=== PATIENT | male | born 1950 | race Caucasian/White ===

== ENCOUNTER → 2016-07-30 | Outpatient (CLI) | payer MEDICARE | END | disposition home or self-care (01) | LOC: MW.CHUR 10:23 | PROVIDERS: ATTEND Urology | DX: C61 Malignant neoplasm of prostate (principal); Z85.46 Personal history of malignant neoplasm of prostate | CPT/HCPCS: 36415; 84153; G0463 ==

== ENCOUNTER 2017-05-06 12:54 | Observation (INO) | payer MEDICARE ==
[2017-05-06] MEDS ORDERED: methylPREDNISolone Sodium Succinate 125 MG/2 ML SDV IVPUSH ONE (12:58)
[2017-05-06] MEDS ORDERED: Albuterol/Ipratropium 3.0-0.5 MG/3 ML Neb Soln NEB ONE (12:58)
[2017-05-06] MEDS ORDERED: Sodium Chloride 0.9% 10 ML Syringe FLUSH PRN (12:58)
[2017-05-06] MEDS ORDERED: Sodium Chloride 0.9% 2.5 ML Syringe FLUSH PRN (12:58)
--- NOTE | 2017-05-06 14:15 | EDM.PDOC ---
ED HPI GENERAL MEDICAL PROBLEM - General Chief Complaint: Respiratory Problem Stated Complaint: SOB Time Seen by Provider: 05/06/17 12:55 Source of Information: Reports: Patient History Limitations: Reports: No Limitations - History of Present Illness INITIAL COMMENTS - FREE TEXT/NARRATIVE: History of present illness: []Patient has been ill for 2 days with shortness of breath, nausea, vomiting and diarrhea. Severe weakness and history of prostate cancer. He is scheduled to see his oncologist today and went in for a blood draw now he was at the lab he was short of breath and was transferred to the ER for evaluation. Patient does have a history of COPD and uses oxygen at home. Review of systems: As per history of present illness and below otherwise all systems reviewed and negative. Past medical history: As per history of present illness and as reviewed below otherwise noncontributory. Surgical history: As per history of present illness and as reviewed below otherwise noncontributory. Social history: No reported history of drug or alcohol abuse. Family history: As per history of present illness and as reviewed below otherwise noncontributory. Physical exam: General: Well developed, well nourished in NAD HEENT: Atraumatic, normocephalic, pupils reactive, negative for conjunctival pallor or scleral icterus, mucous membranes moist, throat clear, neck supple, nontender, trachea midline. Lungs: Clear to auscultation, breath sounds equal bilaterally, chest nontender. Heart: S1S2, regular, negative for clicks, rubs, or JVD. Abdomen: Soft, nondistended, nontender. Negative for masses or hepatosplenomegaly. Negative for costovertebral tenderness. Pelvis: Stable nontender. Genitourinary: Deferred. Rectal: Deferred. Extremities: Atraumatic, negative for cords or calf pain. Neurovascular unremarkable. Neuro: Awake, alert, oriented. Cranial nerves II through XII unremarkable. Cerebellum unremarkable. Motor and sensory unremarkable throughout. Exam nonfocal. Diagnostics: []Influenza positive S x-ray negative for obvious pneumonia Therapeutics: []DuoNeb and steroids begun Impression: []COPD exacerbation, positive influenza A Plan: []Admit for labs, IV hydration and oxygen supplementation. Definitive disposition and diagnosis as appropriate pending reevaluation and review of above. - Related Data Allergies Allergy/AdvReac Type Severity Reaction Status Date / Time No Known Allergies Allergy Verified 05/06/17 13:02 Home Meds: Home Meds Leuprolide Acetate [Lupron Depot] 1 injection ASDIRECTED 06/12/15 [History] Acetaminophen/oxyCODONE [Percocet 325-5 MG] 1 - 2 tab PO Q6H PRN #30 tablet [Rx] Docusate Sodium [Colace] 100 mg PO BID #60 cap 06/14/15 [Rx] Albuterol [Ventolin HFA] 1 puff PO DAILY 05/06/17 [History] Budesonide/Formoterol Fumarate [Symbicort 160-4.5 Mcg Inhaler] 1 puff IH DAILY 05/06/17 [History] Past Medical History Cardiovascular History: Reports: Other (See Below) Other Cardiovascular History: said he was has history of blood pressure for the past months Respiratory History: Reports: COPD Gastrointestinal History: Reports: Diverticulosis Genitourinary History: Reports: Prostate Disorder, Other (See Below) Other Genitourinary History: prostates CA in October 2013 taking lupron every 4 months Oncologic (Cancer) History: Reports: Prostate - Infectious Disease History Infectious Disease History: Reports: Chicken Pox - Past Surgical History GI Surgical History: Reports: Colon, Small Bowel Dermatological Surgical History: Reports: None Social & Family History - Family History Family Medical History: Noncontributory Cardiac: Reports: Other (See Below) Other Cardiac Family History: heart attack Endocrine/Metabolic: Reports: Diabetes, type II - Tobacco Use Smoking Status *Q: Current Every Day Smoker Years of Tobacco use: 30 Packs/Tins Daily: 0.5 Used Tobacco, but Quit: Yes Month Tobacco Last Used: may Second Hand Smoke Exposure: No - Caffeine Use Caffeine Use: Reports: Other - Alcohol Use Days Per Week of Alcohol Use: 2 Number of Drinks Per Day: 6 Total Drinks Per Week: 12 - Recreational Drug Use Recreational Drug Use: No Drug Use in Last 12 Months: No Recreational Drug Type: Reports: Marijuana/Hashish Recreational Drug Use Frequency: Monthly ED ROS GENERAL - Review of Systems Review Of Systems: See Below (See history of present illness) ED EXAM, GENERAL - Physical Exam Exam: See Below (See history of present illness) Course - Vital Signs Last Recorded V/S: Last Vital Signs Temp 97.9 F 05/06/17 17:01 Pulse 90 01/10/18 17:01 Resp 18 05/06/17 17:01 BP 117/65 05/06/17 17:01 Pulse Ox 94 L 05/06/17 17:01 - Orders/Labs/Meds Orders: Active Orders 24 hr Category Date Time Status Patient Status [ADT] Stat ADT 05/06/17 14:39 Active Antiembolic Devices [RC] PER UNIT ROUTINE Care 05/06/17 14:51 Active RT Aerosol Therapy [RC] ASDIRECTED Care 05/06/17 12:58 Active Up ad Charito [RC] ASDIRECTED Care 05/06/17 14:50 Active VTE/DVT Education [RC] PER UNIT ROUTINE Care 05/06/17 14:50 Active Vital Signs [RC] Q4H Care 05/06/17 14:50 Active Regular Diet [DIET] Diet 05/06/17 Breakfast Active BASIC METABOLIC PANEL,BMP [CHEM] AM Lab 05/07/17 05:11 Ordered CBC WITH AUTO DIFF [HEME] AM Lab 05/07/17 05:11 Ordered CULTURE BLOOD [BC] Stat Lab 05/06/17 15:02 Received CULTURE BLOOD [BC] Stat Lab 05/06/17 15:19 Received CULTURE SPUTUM + SMEAR [RM] Stat Lab 05/06/17 14:55 Uncollected Acetaminophen [Tylenol] Med 05/06/17 14:50 Active 650 mg PO Q4H PRN Albuterol/Ipratropium [DuoNeb 3.0-0.5 MG/3 ML] Med 05/06/17 14:50 Active 3 ml NEB Q4HRRT PRN Enoxaparin [Lovenox] Med 05/07/17 09:00 Active 40 mg SUBCUT DAILY Levofloxacin/Dextrose 5%-Water [Levaquin in D5W 750 MG/ Med 05/06/17 15:00 Active 150 ML] 750 mg Premix Bag 1 bag IV Q24H Ondansetron [Zofran] Med 05/06/17 14:50 Active 4 mg IVPUSH Q4H PRN Oseltamivir [Tamiflu] Med 05/06/17 15:00 Active 75 mg PO BID Sodium Chloride 0.9% [Normal Saline] 1,000 ml Med 05/06/17 15:00 Active IV ASDIRECTED Sodium Chloride 0.9% [Saline Flush] Med 05/06/17 12:58 Active 10 ml FLUSH ASDIRECTED PRN Sodium Chloride 0.9% [Saline Flush] Med 05/06/17 12:58 Active 2.5 ml FLUSH ASDIRECTED PRN Blood Culture x2 Reflex Set [OM.PC] Stat Oth 05/06/17 14:55 Ordered Saline Lock Insert [OM.PC] Stat Oth 05/06/17 12:57 Ordered Sequential Compression Device [OM.PC] Per Unit Routine Oth 05/06/17 14:50 Ordered Resuscitation Status Routine Resus Stat 05/06/17 14:50 Ordered Medication Orders Acetaminophen (Tylenol) 650 mg PO Q4H PRN PRN Reason: Pain (Mild 1-3)/fever Albuterol/Ipratropium (Duoneb 3.0-0.5 Mg/3 Ml) 3 ml NEB Q4HRRT PRN PRN Reason: Shortness Of Breath/wheezing Enoxaparin Sodium (Lovenox) 40 mg SUBCUT DAILY [facility] Levofloxacin/Dextrose 750 mg/ (Premix) 150 mls @ 100 mls/hr IV Q24H [facility] Last Admin: 05/06/17 15:37 Dose: 100 mls/hr Sodium Chloride (Normal Saline) 1,000 mls @ 125 mls/hr IV ASDIRECTED [facility] Last Admin: 05/06/17 15:37 Dose: 125 mls/hr Ondansetron HCl (Zofran) 4 mg IVPUSH Q4H PRN PRN Reason: Nausea Oseltamivir Phosphate (Tamiflu) 75 mg PO BID [facility] Last Admin: 05/06/17 15:38 Dose: 75 mg Sodium Chloride (Saline Flush) 10 ml FLUSH ASDIRECTED PRN PRN Reason: Keep Vein Open Last Admin: 05/06/17 13:56 Dose: 10 ml Sodium Chloride (Saline Flush) 2.5 ml FLUSH ASDIRECTED PRN PRN Reason: Keep Vein Open Last Admin: 05/06/17 13:55 Dose: 2.5 ml Labs: Laboratory Tests 05/06/17 Range/Units 12:36 Troponin I < 0.10 (0.0-0.29) NG/ML Meds: Medications Generic Name Dose Route Start Last Admin Trade Name Freq PRN Reason Stop Dose Admin Acetaminophen 650 mg 05/06/17 14:50 Tylenol PO Q4H PRN Pain (Mild 1-3)/fever Albuterol/Ipratropium 3 ml 05/06/17 14:50 Duoneb 3.0-0.5 Mg/3 Ml NEB Q4HRRT PRN Shortness Of Breath/wheezing Enoxaparin Sodium 40 mg 05/07/17 09:00 Lovenox SUBCUT DAILY [facility] Levofloxacin/Dextrose 750 mg/ 150 mls @ 100 mls/hr 05/06/17 15:00 05/06/17 15 :37 Premix IV 100 mls/hr Q24H [facility] Administration Sodium Chloride 1,000 mls @ 125 mls/hr 05/06/17 15:00 05/06/17 15:37 Normal Saline IV 125 mls/hr ASDIRECTED [facility] Administration Ondansetron HCl 4 mg 05/06/17 14:50 Zofran IVPUSH Q4H PRN Nausea Oseltamivir Phosphate 75 mg 05/06/17 15:00 05/06/17 15:38 Tamiflu PO 75 mg BID [facility] Administration Sodium Chloride 10 ml 05/06/17 12:58 05/06/17 13:56 Saline Flush FLUSH 10 ml ASDIRECTED PRN Administration Keep Vein Open Sodium Chloride 2.5 ml 05/06/17 12:58 05/06/17 13:55 Saline Flush FLUSH 2.5 ml ASDIRECTED PRN Administration Keep Vein Open Discontinued Medications Generic Name Dose Route Start Last Admin Trade Name Freq PRN Reason Stop Dose Admin Albuterol/Ipratropium 3 ml 05/06/17 12:58 05/06/17 13:34 Duoneb 3.0-0.5 Mg/3 Ml NEB 05/06/17 12:59 3 ml ONETIME ONE Administration Methylprednisolone Sodium Succinate 125 mg 05/06/17 12:58 05/06/17 13:55 Solu-Medrol IVPUSH 05/06/17 12:59 125 mg ONETIME ONE Administration Departure - Departure Time of Disposition: 15:45 Disposition: Admitted As Inpatient 67 Condition: Fair Clinical Impression: COPD exacerbation, Influenza A - Discharge Information - My Orders Last 24 Hours: My Active Orders 05/06/17 12:57 Saline Lock Insert [OM.PC] Stat 05/06/17 12:58 RT Aerosol Therapy [RC] ASDIRECTED Sodium Chloride 0.9% [Saline Flush] 10 ml FLUSH ASDIRECTED PRN Sodium Chloride 0.9% [Saline Flush] 2.5 ml FLUSH ASDIRECTED PRN 05/06/17 14:39 Patient Status [ADT] Stat - Assessment/Plan Last 24 Hours: My Active Orders 05/06/17 12:57 Saline Lock Insert [OM.PC] Stat 05/06/17 12:58 RT Aerosol Therapy [RC] ASDIRECTED Sodium Chloride 0.9% [Saline Flush] 10 ml FLUSH ASDIRECTED PRN Sodium Chloride 0.9% [Saline Flush] 2.5 ml FLUSH ASDIRECTED PRN 05/06/17 14:39 Patient Status [ADT] Stat
--- NOTE | 2017-05-06 14:16 | CR ---
EXAMINATION: Portable chest radiograph. HISTORY: Shortness of breath. FINDINGS: The trachea is midline. The cardiomediastinal silhouette is within normal limits. No pulmonary infilt rates, effusions or pneumothorax. Old bilateral rib fractures are noted. There is a calcified granuloma within the left lung base. IMPRESSION: No acute cardiopulmonary process.
[2017-05-06] MEDS ORDERED: Ondansetron 4 MG/2 ML SDV IVPUSH PRN (14:50)
[2017-05-06] MEDS ORDERED: Acetaminophen 325 MG Tab PO PRN (14:50)
[2017-05-06] MEDS ORDERED: Albuterol/Ipratropium 3.0-0.5 MG/3 ML Neb Soln NEB PRN (14:50)
--- NOTE | 2017-05-06 14:59 | PCM.HP ---
H&P History of Present Illness - General Admit Problem/Dx: Admission Diagnosis/Problem Admission Diagnosis/Problem Influenza due to influenza A subtype H1N1 virus - History of Present Illness Initial Comments - Free Text/Narative: 67 yo male with pmh of COPD and prostate cancer who presented for lab draw for oncology clinic and was then brought to the ED due to complaints of shortness of breath. Patient reports productive cough, shortness of breath, fevers, and myalgias for two days. He becomes short of breath by walking to the bathroom. He tested positive for influenza A. CXR reported no consolidation. He is satting 97% on RA - Related Data Allergies/Adverse Reactions: Allergies Allergy/AdvReac Type Severity Reaction Status Date / Time No Known Allergies Allergy Verified 05/06/17 13:02 Home Medications: Home Meds Leuprolide Acetate [Lupron Depot] 1 injection ASDIRECTED 06/12/15 [History] Acetaminophen/oxyCODONE [Percocet 325-5 MG] 1 - 2 tab PO Q6H PRN #30 tablet [Rx] Docusate Sodium [Colace] 100 mg PO BID #60 cap 06/14/15 [Rx] Albuterol [Ventolin HFA] 1 puff PO DAILY 05/06/17 [History] Budesonide/Formoterol Fumarate [Symbicort 160-4.5 Mcg Inhaler] 1 puff IH DAILY 05/06/17 [History] Levofloxacin [Levaquin] 750 mg PO DAILY #3 tablet 05/07/17 [Rx] Oseltamivir Phosphate [IJD: Tamiflu] 75 mg PO BID #9 capsule 05/07/17 [Rx] Past Medical History Cardiovascular History: Reports: Other (See Below) Other Cardiovascular History: said he was has history of blood pressure for the past months Respiratory History: Reports: COPD Gastrointestinal History: Reports: Diverticulosis Genitourinary History: Reports: Prostate Disorder, Other (See Below) Other Genitourinary History: prostates CA in October 2013 taking lupron every 4 months Oncologic (Cancer) History: Reports: Prostate - Infectious Disease History Infectious Disease History: Reports: Chicken Pox - Past Surgical History GI Surgical History: Reports: Colon, Small Bowel Dermatological Surgical History: Reports: None Social & Family History - Family History Family Medical History: Noncontributory Cardiac: Reports: Other (See Below) Other Cardiac Family History: heart attack Endocrine/Metabolic: Reports: Diabetes, type II - Tobacco Use Smoking Status *Q: Current Every Day Smoker Years of Tobacco use: 30 Packs/Tins Daily: 0.5 Used Tobacco, but Quit: Yes Month Tobacco Last Used: may Second Hand Smoke Exposure: No - Caffeine Use Caffeine Use: Reports: Other - Alcohol Use Days Per Week of Alcohol Use: 2 Number of Drinks Per Day: 6 Total Drinks Per Week: 12 - Recreational Drug Use Recreational Drug Use: No Drug Use in Last 12 Months: No Recreational Drug Type: Reports: Marijuana/Hashish Recreational Drug Use Frequency: Monthly H&P Review of Systems - Review of Systems: Review Of Systems: ROS reveals no pertinent complaints other than HPI. Exam - Exam Exam: See Below - Vital Signs Vital Signs: Last Vital Signs Temp 36.7 C 05/06/17 13:04 Pulse 97 05/06/17 13:04 Resp 18 05/06/17 13:04 BP 107/81 05/06/17 13:04 Pulse Ox 95 05/06/17 13:04 Weight: 90.718 kg - Exam General: Alert, Oriented HEENT: Mucosa Moist & [place] Neck: No: JVD Lungs: Normal Respiratory Effort, Decreased Breath Sounds Cardiovascular: Regular Rate, Regular Rhythm GI/Abdominal Exam: Soft, Non-Tender Extremities: Non-Tender, No Pedal Edema Skin: Warm, Dry, Intact - Patient Data Lab Results Last 24 hrs: Laboratory Results - last 24 hr 05/06/17 Range/Units 12:36 Troponin I < 0.10 (0.0-0.29) NG/ML Result Diagrams: 05/07/17 04:52 05/07/17 04:52 Emmanuel Results Last 24 hrs: Microbiology 05/06/17 13:24 Influenza Type A Antigen Screen - Final Nasopharyngeal Swab Positive Influenza A Ag Influenza Type B Antigen Screen - Final NEGATIVE INFLUENZA B VIRUS AG *Q Meaningful Use (ADM) - VTE *Q VTE Criteria *Q: - Stroke *Q Stroke Criteria *Q: - AMI *Q AMI Criteria *Q: Problem List Initiated/Reviewed/Updated: Yes Orders Last 24hrs: Active Orders 24 hr Category Date Time Status Patient Status [ADT] Stat ADT 05/06/17 14:39 Active Antiembolic Devices [RC] PER UNIT ROUTINE Care 05/06/17 14:51 Ordered EKG Documentation Completion [RC] STAT Care 05/06/17 12:57 Active Oxygen Therapy [RC] PRN Care 05/06/17 14:50 Ordered RT Aerosol Therapy [RC] ASDIRECTED Care 05/06/17 12:58 Active RT Aerosol Therapy [RC] ASDIRECTED Care 05/06/17 14:51 Ordered Up ad Charito [RC] ASDIRECTED Care 05/06/17 14:50 Ordered VTE/DVT Education [RC] PER UNIT ROUTINE Care 05/06/17 14:50 Ordered Vital Signs [RC] Q4H Care 05/06/17 14:50 Ordered Regular Diet [DIET] Diet 05/06/17 Breakfast Ordered CBC WITH AUTO DIFF [HEME] Routine Lab 05/06/17 14:50 Ordered COMPREHENSIVE METABOLIC PN,CMP [CHEM] Routine Lab 05/06/17 14:50 Ordered Acetaminophen [Tylenol] Med 05/06/17 14:50 Ordered 650 mg PO Q4H PRN Albuterol/Ipratropium [DuoNeb 3.0-0.5 MG/3 ML] Med 05/06/17 14:50 Ordered 3 ml NEB Q4HRRT PRN Enoxaparin [Lovenox] Med 05/07/17 09:00 Ordered 40 mg SUBCUT DAILY Levofloxacin/Dextrose 5%-Water [Levaquin in D5W 750 MG/ Med 05/06/17 15:00 Ordered 150 ML] 750 mg Premix Bag 1 bag IV Q24H Ondansetron [Zofran] Med 05/06/17 14:50 Ordered 4 mg IVPUSH Q4H PRN Oseltamivir [Tamiflu] Med 05/06/17 15:00 Ordered 75 mg PO BID Sodium Chloride 0.9% @ 125 MLS/HR (1000ml) Med 05/06/17 15:00 Ordered Sodium Chloride 0.9% [Normal Saline] 1,000 ml IV ASDIRECTED Sodium Chloride 0.9% [Saline Flush] Med 05/06/17 12:58 Active 10 ml FLUSH ASDIRECTED PRN Sodium Chloride 0.9% [Saline Flush] Med 05/06/17 12:58 Active 2.5 ml FLUSH ASDIRECTED PRN Saline Lock Insert [OM.PC] Stat Oth 05/06/17 12:57 Ordered Sequential Compression Device [OM.PC] Per Unit Routine Oth 05/06/17 14:50 Ordered Resuscitation Status Routine Resus Stat 05/06/17 14:50 Ordered Medication Orders Acetaminophen (Tylenol) 650 mg PO Q4H PRN PRN Reason: Pain (Mild 1-3)/fever Albuterol/Ipratropium (Duoneb 3.0-0.5 Mg/3 Ml) 3 ml NEB Q4HRRT PRN PRN Reason: Shortness Of Breath/wheezing Enoxaparin Sodium (Lovenox) 40 mg SUBCUT DAILY [facility] Levofloxacin/Dextrose 750 mg/ (Premix) 150 mls @ 100 mls/hr IV Q24H [facility] Sodium Chloride (Normal Saline) 1,000 mls @ 125 mls/hr IV ASDIRECTED [facility] Ondansetron HCl (Zofran) 4 mg IVPUSH Q4H PRN PRN Reason: Nausea Oseltamivir Phosphate (Tamiflu) 75 mg PO BID [facility] Sodium Chloride (Saline Flush) 10 ml FLUSH ASDIRECTED PRN PRN Reason: Keep Vein Open Last Admin: 05/06/17 13:56 Dose: 10 ml Sodium Chloride (Saline Flush) 2.5 ml FLUSH ASDIRECTED PRN PRN Reason: Keep Vein Open Last Admin: 05/06/17 13:55 Dose: 2.5 ml Assessment/Plan Comment:: 67 yo male admitted for influenza and possible bacterial pneumonia. Will treat with IV fluids, tamiflu, and Levaquin. Duonebs ordered due to history of COPD.
[2017-05-06] MEDS ORDERED: Levofloxacin/Dextrose 5%-Water 750 MG in Premix Bag 1 BAG IV SCH (15:00)
[2017-05-06] MEDS: Sodium Chloride 0.9% 1,000 ML IV SCH ×2 (15:37→23:48)
[2017-05-06] MEDS: Oseltamivir 75 MG Cap PO SCH ×2 (15:38→21:29)
[2017-05-06] MEDS: Nicotine 7 MG/24 Hr Patch TRDERM SCH (18:28)
[2017-05-06] MEDS ORDERED: Benzocaine/Cetylpyridinium/Menthol Lozenge MUCMEM PRN (23:22)
[2017-05-07 06:10] LABS: CHLORIDE,CL 108 mmol/L (98-110); SODIUM,NA 140 mmol/L (136-146)
[2017-05-07] MEDS: Oseltamivir 75 MG Cap PO SCH (08:14)
[2017-05-07] MEDS: Nicotine 7 MG/24 Hr Patch TRDERM SCH (08:14)
[2017-05-07] MEDS ORDERED: Enoxaparin 40 MG/0.4 ML Syringe SUBCUT SCH (09:00)
--- NOTE | 2017-05-07 10:41 | PCM.DCSUM1 ---
Discharge Summary - Hospital Course Brief History: 67 yo male with pmh of COPD and prostate cancer who presented for lab draw for oncology clinic and was then brought to the ED due to complaints of shortness of breath. Patient reports productive cough, shortness of breath, fevers, and myalgias for two days. He becomes short of breath by walking to the bathroom. He tested positive for influenza A. CXR reported no consolidation. He is satting 97% on RA - Discharge Data Discharge Date: 05/07/17 Discharge Disposition: Home, Self-Care 01 Condition: Good - Patient Instructions Diet: Usual Diet as Tolerated Activity: No Strenuous Activities, Rest and Relax Today Showering/Bathing: August Shower Notify Provider of: Fever, Increased Pain, Swelling and Redness, Drainage, Nausea and/or Vomiting - Discharge Plan Prescriptions/Med Rec: Levofloxacin [Levaquin] 750 mg PO DAILY #3 tablet Oseltamivir Phosphate [IJD: Tamiflu] 75 mg PO BID #9 capsule Home Medications: Home Meds Leuprolide Acetate [Lupron Depot] 1 injection ASDIRECTED 06/12/15 [History] Acetaminophen/oxyCODONE [Percocet 325-5 MG] 1 - 2 tab PO Q6H PRN #30 tablet [Rx] Docusate Sodium [Colace] 100 mg PO BID #60 cap 06/14/15 [Rx] Albuterol [Ventolin HFA] 1 puff PO DAILY 05/06/17 [History] Budesonide/Formoterol Fumarate [Symbicort 160-4.5 Mcg Inhaler] 1 puff IH DAILY 05/06/17 [History] Levofloxacin [Levaquin] 750 mg PO DAILY #3 tablet 05/07/17 [Rx] Oseltamivir Phosphate [IJD: Tamiflu] 75 mg PO BID #9 capsule 05/07/17 [Rx] Patient Handouts: Shortness of Breath, [id number], Influenza, Adult, Easy-to- Read Referrals: Durga Fox DO [Physician] - - Discharge Summary/Plan Comment DC Time >30 min.: No Discharge Summary/Plan Comment: Discharge Diagnoses; Influenza A positive Possible bacterial pneumonia COPD Prostate Cancer Dre was admitted and treated with IVFs, tamiflu and supportive care during his overnight stay. He was also treated with levaquin for possible bacterial pneumonia. Today he is feeling much better and is requesting discharge home. He is not requiring oxygen and has been afebrile. Toay Leukopenia noted, 2,000. He was encouraged to stay out of the public for the next few days and rest at home with lots of fluids and rest. He verbalizes understanding. I will continue Tamiflu and Levaquin for another 3 days both, total of 5 days. He is to return to ED or clinic if concerns should arise. He is to follow up with PCP in 1 week. - General Info Date of Service: 05/07/17 Admission Dx/Problem (Free Text: Admission Diagnosis/Problem Admission Diagnosis/Problem Influenza due to influenza A subtype H1N1 virus Subjective Update: Feeling better this morning, no fevers. No chest pain, intermittent SOB, but he reports he has been that way for years, no changes. Myalgias have improved. Requesting discharge home today. Functional Status: Reports: Pain Controlled, Tolerating Diet, Ambulating, Urinating - Review of Systems General: Reports: Malaise (but improved) HEENT: Reports: Sinus Congestion. Denies: Sore Throat Pulmonary: Reports: Shortness of Breath (intermittent, but at baseline. ), Cough. Denies: Sputum, Hemoptysis, Wheezing Cardiovascular: Reports: No Symptoms. Denies: Chest Pain, Palpitations, Dyspnea on Exertion, Lightheadedness Gastrointestinal: Reports: No Symptoms. Denies: Abdominal Pain, Nausea, Vomiting Genitourinary: Reports: No Symptoms. Denies: Dysuria, Frequency, Burning, Pain Neurological: Reports: No Symptoms. Denies: Confusion Psychiatric: Reports: No Symptoms. Denies: Confusion - Patient Data Vitals - Most Recent: Last Vital Signs Temp 96.4 F 05/07/17 07:48 Pulse 94 05/07/17 07:48 Resp 20 05/07/17 07:48 BP 135/81 05/07/17 07:48 Pulse Ox 93 L 05/07/17 07:48 Weight - Most Recent: 90.855 kg I&O - Last 24 hours: Intake & Output 05/06/17 05/07/17 05/07/17 22:59 06:59 14:59 Intake Total 700 Output Total 3725 Balance -3025 Lab Results - Last 24 hrs: Laboratory Results - last 24 hr 05/06/17 05/07/17 05/07/17 Range/Units 15:08 04:52 04:52 WBC 2.20 L (4.0-11.0) K/uL RBC 4.36 L (4.50-5.90) M/uL Hgb 12.8 L (13.0-17.0) g/dL Hct 39.6 (38.0-50.0) % MCV 90.8 (80.0-98.0) fL MCH 29.4 (27.0-32.0) pg MCHC 32.3 (31.0-37.0) g/dL RDW Std Deviation 44.2 (28.0-62.0) fl RDW Coeff of Rachele 13 (11.0-15.0) % Plt Count 270 (150-400) K/uL MPV 10.10 (7.40-12.00) fL Neut % (Auto) 73.6 (48.0-80.0) % Lymph % (Auto) 15.0 L (16.0-40.0) % Chester % (Auto) 11.4 (0.0-15.0) % Eos % (Auto) 0.0 (0.0-7.0) % Baso % (Auto) 0.0 (0.0-1.5) % Neut # (Auto) 1.6 (1.4-5.7) K/uL Lymph # (Auto) 0.3 L (0.6-2.4) K/uL Chester # (Auto) 0.3 (0.0-0.8) K/uL Eos # (Auto) 0.0 (0.0-0.7) K/uL Baso # (Auto) 0.0 (0.0-0.1) K/uL Nucleated RBC % 0.0 /100WBC Nucleated RBCs # 0 K/uL Sodium 140 (136-146) mmol/L Potassium 4.3 (3.5-5.1) mmol/L Chloride 108 (98-110) mmol/L Carbon Dioxide 22 (21-31) mmol/L BUN 14 (6.0-23.0) mg/dL Creatinine 0.7 (0.6-1.5) mg/dL Est Cr Clr Drug Dosing 103.46 mL/min Estimated GFR (MDRD) > 60.0 ml/min Glucose 126 H (60-110) mg/dL Calcium 8.4 L (8.8-10.8) mg/dL Urine Color YELLOW Urine Appearance CLEAR Urine pH 5.5 (5.0-8.0) Ur Specific Keymar 1.010 (1.001-1.035) Urine Protein NEGATIVE (NEGATIVE) mg/dL Urine Glucose (UA) NEGATIVE (NEGATIVE) mg/dL Urine Ketones NEGATIVE (NEGATIVE) mg/dL Urine Occult Blood NEGATIVE (NEGATIVE) Urine Nitrite NEGATIVE (NEGATIVE) Urine Bilirubin NEGATIVE (NEGATIVE) Urine Urobilinogen 0.2 (<2.0) EU/dL Ur Leukocyte Esterase NEGATIVE (NEGATIVE) Urine RBC 0-1 (0-2/HPF) Urine WBC 0-1 (0-5/HPF) Ur Epithelial Cells RARE (NONE-FEW) Urine Bacteria FEW (NEGATIVE) Med Orders - Current: Current Medications Acetaminophen (Tylenol) 650 mg PO Q4H PRN PRN Reason: Pain (Mild 1-3)/fever Albuterol/Ipratropium (Duoneb 3.0-0.5 Mg/3 Ml) 3 ml NEB Q4HRRT PRN PRN Reason: Shortness Of Breath/wheezing Last Admin: 05/07/17 00:29 Dose: 3 ml Benzocaine/Menthol (Cepacol Sore Throat) 1 lozenge MUCMEM Q2H PRN PRN Reason: Sore Throat Last Admin: 05/07/17 00:30 Dose: 1 lozenge Enoxaparin Sodium (Lovenox) 40 mg SUBCUT DAILY [facility] Last Admin: 05/07/17 08:14 Dose: 40 mg Levofloxacin/Dextrose 750 mg/ (Premix) 150 mls @ 100 mls/hr IV Q24H [facility] Last Admin: 05/06/17 15:37 Dose: 100 mls/hr Nicotine (Habitrol) 7 mg TRDERM DAILY [facility] Last Admin: 05/07/17 08:14 Dose: 7 mg Ondansetron HCl (Zofran) 4 mg IVPUSH Q4H PRN PRN Reason: Nausea Oseltamivir Phosphate (Tamiflu) 75 mg PO BID [facility] Last Admin: 05/07/17 08:14 Dose: 75 mg Sodium Chloride (Saline Flush) 10 ml FLUSH ASDIRECTED PRN PRN Reason: Keep Vein Open Last Admin: 05/06/17 13:56 Dose: 10 ml Sodium Chloride (Saline Flush) 2.5 ml FLUSH ASDIRECTED PRN PRN Reason: Keep Vein Open Last Admin: 05/06/17 13:55 Dose: 2.5 ml Discontinued Medications Albuterol/Ipratropium (Duoneb 3.0-0.5 Mg/3 Ml) 3 ml NEB ONETIME ONE Stop: 05/06/17 12:59 Last Admin: 05/06/17 13:34 Dose: 3 ml Sodium Chloride (Normal Saline) 1,000 mls @ 125 mls/hr IV ASDIRECTED THERESA Last Admin: 05/06/17 23:48 Dose: 125 mls/hr Methylprednisolone Sodium Succinate (Solu-Medrol) 125 mg IVPUSH ONETIME ONE Stop: 05/06/17 12:59 Last Admin: 05/06/17 13:55 Dose: 125 mg - Exam Quality Assessment: Reports: DVT Prophylaxis. Denies: Supplemental Oxygen General: Reports: Alert, Oriented, Cooperative, No Acute Distress Neck: Reports: Supple Lungs: Reports: Clear to Auscultation, Normal Respiratory Effort Cardiovascular: Reports: Regular Rate, Regular Rhythm GI/Abdominal Exam: Normal Bowel Sounds, Soft, Non-Tender, No Organomegaly, No Distention, No Abnormal Bruit, No Mass, Pelvis Stable Extremities: Normal Inspection, Normal Range of Motion, Non-Tender, No Pedal Edema, Normal Capillary Refill Neurological: Reports: No New Focal Deficit Psy/Mental Status: Reports: Alert, Normal Affect, Normal Mood *Q Meaningful Use (DIS) - VTE *Q VTE Criteria *Q: - Stroke *Q Stroke Criteria *Q: - AMI *Q AMI Criteria *Q:
[2017-05-07 11:30] VITALS: BP 124/75
[2017-05-07] MEDS ORDERED: Levofloxacin 250 MG Tab PO ONE (12:09)
[2017-05-08] MEDS ORDERED: Levofloxacin/Dextrose 5%-Water 750 MG in Premix Bag 1 BAG IV SCH (15:00)
== END 2017-05-07 12:45 | disposition home or self-care (01) ==
LOC: MW.ED 12:54 → MW.MS 15:05
PROVIDERS: ADMIT Internal Medicine; ATTEND Internal Medicine
DX: J10.1 Influenza due to other identified influenza virus with other respiratory manifestations (principal); J44.9 Chronic obstructive pulmonary disease, unspecified; C61 Malignant neoplasm of prostate; F17.200 Nicotine dependence, unspecified, uncomplicated; Z79.899 Other long term (current) drug therapy
CPT/HCPCS: 36415; 71045; 80048; 81001; 84484; 85025; 87040; 87804; 93005; 94640; 96361; 96365; 96372; 96375; 99284; A9270; G0378; J1650; J1956; J2930; J7040; 96374